=== PATIENT | female | born 1970 | race Caucasian/White ===

== ENCOUNTER 2018-05-31 10:08 | Day surgery (SDC) | payer OTHER ==
[2018-05-31] MEDS ORDERED: DIPRIVAN 200 MG/20 ML IV ONE (10:09)
[2018-05-31] MEDS ORDERED: Lactated Ringers 1,000 ML IV ONE (10:24)
[2018-05-31] MEDS ORDERED: Lactated Ringers 1,000 ML IV SCH (10:30)
[2018-05-31 13:02] VITALS: O2SAT 96
[2018-05-31 13:17] VITALS: BP 118/78; PULSE 69
--- NOTE | 2018-06-01 09:27 | OP ---
PROCEDURE DATE/TIME: 05/31/2018 1215 PREOPERATIVE DIAGNOSIS: Ulcerated gastric masses. POSTOPERATIVE DIAGNOSIS: Ulcerated gastric masses, peptic ulcer disease. Ulcerative disease is chronic and nonhealing. PROCEDURE: EGD with biopsies. PROCEDURE PERFORMED BY: Mary Dumont M.D. ESTIMATED BLOOD LOSS: Minimal. ANESTHESIA: MAC. COMPLICATIONS: None. SPECIMENS: 1) Lower antral ulcer biopsy. 2) Lower gastric body biopsy. HISTORY: This is a patient who has had long standing chronic peptic ulcer disease. She also has two raised gastric lesions that appear benign however have been persistent and intermittently with ulcerations over top of them. She presents for further surveillance. Her last EGD was unsuccessful due to retained gastric contents. She did have a gastric emptying study which showed gastroparesis as well. She was seen in the preoperative area and any remaining questions answered. Risks, benefits and alternatives have been discussed with her and she would like to proceed with EGD with biopsies. DESCRIPTION OF PROCEDURE: The patient was then taken back to the endoscopy suite, laid in the left lateral decubitus position. A complete time out performed. The scope gently introduced into the mouth, oropharynx and down into the esophagus, stomach and duodenum. The duodenum was normal. In the stomach the same two raised gastric masses identified. Previously they have had ulcerations and these ulcerations have improved, three of the masses with and without ulcerations. However at this time there are very subtle ulcerations over the top of these masses but the masses remain. They protrude out into the lumen of the stomach. They do appear to be benign but I did biopsy the larger one for further exam and also the patient has further worsening of the peptic ulcer disease because now she has two new peptic ulcers in her antrum with raised tissue here. We biopsied these as well and sent in two separate specimens. All sites are hemostatic after biopsy. I did not see any other issues outside of the peptic ulcer disease and the gastric masses. I have discussed all of the results with her family. She is going to follow up with me as an outpatient for biopsy results and to discuss surgical options for this. The remainder of her esophagus and the rest of her stomach were unremarkable.
== END 2018-05-31 13:30 | disposition home or self-care (01) ==
LOC: SDC 10:08
PROVIDERS: ATTEND Surgery
DX: K27.9 Peptic ulcer, site unspecified, unspecified as acute or chronic, without hemorrhage or perforation (principal); K31.9 Disease of stomach and duodenum, unspecified
CPT/HCPCS: J2704

== ENCOUNTER 2022-09-24 06:48 | Day surgery (SDC) | payer OTHER ==
[2022-09-24] MEDS ORDERED: LIDOCAINE HCL 2% 100 MG/5 ML IH ONE (06:49)
[2022-09-24] MEDS ORDERED: Decadron 4 MG INJ IV ONE (06:49)
[2022-09-24] MEDS ORDERED: DIPRIVAN 200 MG/20 ML IV ONE (08:36)
[2022-09-24] MEDS ORDERED: Lactated Ringers 1,000 ML IV ONE (14:25)
--- NOTE | 2022-09-24 19:08 | XRAY ---
Indication: Right C2-C4 MBB. Intraoperative fluoroscopy provided for 12 seconds. 2 digital spot image submitted for interpretation demonstrates posterior needle tips projecting over the expected right C2-C4 nerve roots. Correlate with intraoperative findings/report.
--- NOTE | 2022-09-24 19:25 | XRAY ---
12 seconds of fluoroscopy was used in surgery for a right C2-C4 MBB.
== END 2022-09-24 09:08 | disposition home or self-care (01) ==
LOC: SDC-PAIN 06:48
PROVIDERS: ATTEND Psychiatry & Neurology Pain Medicine
DX: M47.812 Spondylosis without myelopathy or radiculopathy, cervical region (principal); E11.9 Type 2 diabetes mellitus without complications; Z79.899 Other long term (current) drug therapy
CPT/HCPCS: 64490; 64491; 72040; 77002; 82947; J1100; J2704

== ENCOUNTER 2022-10-29 07:55 | Day surgery (SDC) | payer OTHER ==
[2022-10-29] MEDS ORDERED: BUPIVACAINE 0.5% VIAL IJ ONE (07:56)
[2022-10-29] MEDS ORDERED: DIPRIVAN 200 MG/20 ML IV ONE (09:25)
[2022-10-29] MEDS ORDERED: Lactated Ringers 1,000 ML IV ONE (13:07)
--- NOTE | 2022-10-29 18:31 | XRAY ---
Indication: Right C2-C4 MBB. Intraoperative fluoroscopy provided for 13 seconds. 2 digital spot image submitted for interpretation demonstrates posterior needle tips projecting over the expected right C2-C4 nerve roots. Correlate with intraoperative findings/report.
--- NOTE | 2022-10-29 18:56 | XRAY ---
13 seconds of fluoroscopy was used in surgery for a right C2-C4 MBB.
== END 2022-10-29 09:45 | disposition home or self-care (01) ==
LOC: SDC-PAIN 07:55
PROVIDERS: ATTEND Psychiatry & Neurology Pain Medicine
DX: M47.812 Spondylosis without myelopathy or radiculopathy, cervical region (principal); E11.9 Type 2 diabetes mellitus without complications; Z79.899 Other long term (current) drug therapy
CPT/HCPCS: 64490; 64491; 72040; 77002; 82947; J2704

== ENCOUNTER 2022-11-26 08:36 | Day surgery (SDC) | payer OTHER ==
[2022-11-26] MEDS ORDERED: Decadron 4 MG INJ IV ONE (08:37)
[2022-11-26] MEDS ORDERED: LIDOCAINE HCL 2% 100 MG/5 ML IJ ONE (08:37)
[2022-11-26] MEDS ORDERED: DIPRIVAN 200 MG/20 ML IV ONE (11:05)
[2022-11-26] MEDS ORDERED: Lactated Ringers 1,000 ML IV ONE (13:09)
--- NOTE | 2022-11-26 13:10 | XRAY ---
Indication: Left C2-C4 MBB. Intraoperative fluoroscopy provided for 9 seconds. 2 digital spot image submitted for interpretation demonstrates posterior needle tips projecting over the expected left C2-C4 nerve roots. Correlate with intraoperative findings/report.
--- NOTE | 2022-11-26 13:30 | XRAY ---
9 seconds of fluoroscopy was used in surgery for a left C2-C4 MBB.
== END 2022-11-26 11:33 | disposition home or self-care (01) ==
LOC: SDC-PAIN 08:36
PROVIDERS: ATTEND Psychiatry & Neurology Pain Medicine
DX: M47.812 Spondylosis without myelopathy or radiculopathy, cervical region (principal); E11.9 Type 2 diabetes mellitus without complications; Z79.899 Other long term (current) drug therapy
CPT/HCPCS: 64490; 64491; 72040; 77002; 82947; J1100; J2704

== ENCOUNTER 2022-12-24 06:45 | Day surgery (SDC) | payer OTHER ==
[2022-12-24] MEDS ORDERED: Decadron 4 MG INJ IV ONE (06:46)
[2022-12-24] MEDS ORDERED: BUPIVACAINE 0.5% VIAL IJ ONE (06:46)
[2022-12-24] MEDS ORDERED: DIPRIVAN 200 MG/20 ML IV ONE (08:34)
[2022-12-24] MEDS ORDERED: ROBINUL ONE (08:34)
[2022-12-24] MEDS ORDERED: Lactated Ringers 1,000 ML IV ONE (09:24)
--- NOTE | 2022-12-24 10:17 | XRAY ---
Indication: Left C2-C4 MBB. Intraoperative fluoroscopy provided for 18 seconds. 3 digital spot images submitted for interpretation demonstrates posterior needle tips projecting over the left C2-C4 nerve roots. Correlate with intraoperative findings/report.
--- NOTE | 2022-12-24 10:53 | XRAY ---
18 seconds of fluoroscopy was used in surgery for a left C2-C4 MBB.
== END 2022-12-24 09:00 | disposition home or self-care (01) ==
LOC: SDC-PAIN 06:45
PROVIDERS: ATTEND Psychiatry & Neurology Pain Medicine
DX: M47.812 Spondylosis without myelopathy or radiculopathy, cervical region (principal); E11.9 Type 2 diabetes mellitus without complications; Z79.899 Other long term (current) drug therapy
CPT/HCPCS: 64490; 64491; 72040; 77002; 82947; 93005; J1100; J2704

== ENCOUNTER 2023-02-04 08:03 | Day surgery (SDC) | payer OTHER ==
[2023-02-04] MEDS ORDERED: Decadron 4 MG INJ IV ONE (08:04)
[2023-02-04] MEDS ORDERED: BUPIVACAINE 0.5% VIAL IJ ONE (08:04)
[2023-02-04] MEDS ORDERED: LIDOCAINE HCL 1% 50 MG/5 ML VL PF IJ ONE (08:04)
[2023-02-04] MEDS ORDERED: DIPRIVAN 200 MG/20 ML IV ONE ×2 (09:24→09:34)
--- NOTE | 2023-02-04 13:54 | XRAY ---
Indication: Right C2-C4 RFA. Intraoperative fluoroscopy provided for 38 seconds. 5 digital spot image submitted for interpretation demonstrates posterior needle tips projecting over the expected right C2-C4 nerve roots. Correlate with intraoperative findings/report.
--- NOTE | 2023-02-04 13:54 | XRAY ---
38 seconds of fluoroscopy was used in surgery for a right C2-C4 RFA.
[2023-02-04] MEDS ORDERED: Lactated Ringers 1,000 ML IV ONE (14:58)
== END 2023-02-04 09:56 | disposition home or self-care (01) ==
LOC: SDC-PAIN 08:03
PROVIDERS: ATTEND Psychiatry & Neurology Pain Medicine
DX: M47.812 Spondylosis without myelopathy or radiculopathy, cervical region (principal); E11.9 Type 2 diabetes mellitus without complications; Z79.899 Other long term (current) drug therapy
CPT/HCPCS: 64633; 64634; 72040; 77002; 82947; J1100; J2001; J2704

== ENCOUNTER 2023-02-05 07:37 | Day surgery (SDC) | payer OTHER ==
[2023-02-05] MEDS ORDERED: Decadron 4 MG INJ IV ONE (07:38)
[2023-02-05] MEDS ORDERED: BUPIVACAINE 0.5% VIAL IJ ONE (07:38)
[2023-02-05] MEDS ORDERED: XYLOCAINE 1% HCL 20 ML MDV IJ ONE (07:38)
[2023-02-05] MEDS ORDERED: Lactated Ringers 1,000 ML IV ONE (09:18)
[2023-02-05] MEDS ORDERED: DIPRIVAN 200 MG/20 ML IV ONE (09:50)
--- NOTE | 2023-02-05 10:56 | XRAY ---
Indication: Left C2-C4 RFA. Intraoperative fluoroscopy provided for 18 seconds. 4 digital spot images submitted for interpretation demonstrates posterior needle tips projecting over the expected left C2-C4 nerve roots. Correlate with intraoperative findings/report.
--- NOTE | 2023-02-05 12:33 | XRAY ---
18 seconds of fluoroscopy was used in surgery for a left C2-C4 RFA.
== END 2023-02-05 10:25 | disposition home or self-care (01) ==
LOC: SDC-PAIN 07:37
PROVIDERS: ATTEND Psychiatry & Neurology Pain Medicine
DX: M47.812 Spondylosis without myelopathy or radiculopathy, cervical region (principal); E11.9 Type 2 diabetes mellitus without complications
CPT/HCPCS: 64633; 64634; 72040; 77002; 82947; J1100; J2704

== ENCOUNTER 2025-02-22 07:32 | Day surgery (SDC) | payer OTHER ==
[2025-02-22] MEDS ORDERED: BUPIVACAINE 0.5% VIAL IJ ONE (07:33)
[2025-02-22] MEDS ORDERED: LIDOCAINE HCL 1% 50 MG/5 ML VL IJ ONE (07:33)
[2025-02-22] MEDS ORDERED: propofoL IV ONE (10:05)
[2025-02-22] MEDS ORDERED: Lactated Ringers 1,000 ML IV ONE (11:05)
--- NOTE | 2025-02-22 13:06 | XRAY ---
Indication: Left C2-C4 RFA. Intraoperative fluoroscopy provided for 20 seconds. 3 digital spot images submitted for interpretation demonstrates posterior needle tips projecting over expected left C2-C4 nerve roots. Correlate with intraoperative findings/report.
--- NOTE | 2025-02-22 14:00 | XRAY ---
20 seconds of fluoroscopy was used in surgery for a left C2-C4 RFA.
== END 2025-02-22 10:42 | disposition home or self-care (01) ==
LOC: SDC-PAIN 07:32
PROVIDERS: ATTEND Psychiatry & Neurology Pain Medicine
DX: M47.812 Spondylosis without myelopathy or radiculopathy, cervical region (principal); E11.9 Type 2 diabetes mellitus without complications